=== PATIENT | male | born 1995 | race Caucasian/White ===

== ENCOUNTER 2020-07-11 11:04 | Emergency (ER) | payer SELFPAY ==
[~2020-07-11] VITALS: Ht 182.9 cm; Wt 77.1 kg
[2020-07-11] MEDS ORDERED: HYDROCODONE/APAP 5MG-325MG TAB PO ONE (11:30)
[2020-07-11] MEDS ORDERED: KETOROLAC TROMETHAMINE 60 MG/2 ML VIAL IM ONE (11:30)
[2020-07-11] MEDS ORDERED: KETOROLAC TROMETHAMINE 30 MG/ML VIAL ONE (11:52)
[2020-07-11] MEDS ORDERED: ULTRAM50 MG PO (11:57)
[2020-07-11 12:09] VITALS: BP 127/53
== END 2020-07-11 12:19 | disposition home or self-care (01) ==
LOC: ER 11:18
DX: M25.511 Pain in right shoulder (principal); S43.401A Unspecified sprain of right shoulder joint, initial encounter; Y93.83 Activity, rough housing and horseplay; Y92.89 Other specified places as the place of occurrence of the external cause; F41.9 Anxiety disorder, unspecified
CPT/HCPCS: 73030; 99284; J1885